=== PATIENT | male | born 1960 | race Caucasian/White ===

== ENCOUNTER 2018-03-03 09:27 | Day surgery (SDC) | payer BC ==
[2018-03-03 10:28] VITALS: BMI 25.6
[2018-03-03] MEDS ORDERED: Midazolam 2 MG/2 ML VIAL ONE (13:15)
[2018-03-03] MEDS ORDERED: Propofol 10 mg/ml Inj (20 ML) ONE (13:16)
[2018-03-03] MEDS ORDERED: Lactated Ringer's 500 ML IV SCH (13:45)
[2018-03-03 15:23] VITALS: TEMP 98.2
[2018-03-03 15:24] VITALS: BP 104/68; PULSE 84; RESP 15; O2SAT 98
== END 2018-03-03 15:00 | disposition home or self-care (01) ==
LOC: C.ENDO 09:27
PROVIDERS: ATTEND Internal Medicine Gastroenterology
DX: D12.4 Benign neoplasm of descending colon (principal); K92.1 Melena; K62.1 Rectal polyp; K57.90 Diverticulosis of intestine, part unspecified, without perforation or abscess without bleeding
CPT/HCPCS: 45385; 88305; J2250; J2704; J7120